=== PATIENT | female | born 1985 | race Caucasian/White ===

== ENCOUNTER → 2017-10-29 | Outpatient (REF) | payer BC ==
[2017-10-31 14:10] LABS: HPV HYBRID CAPTURE II Negative (Negative)
== END ==
LOC: M LAB REF 13:41
DX: Z12.4 Encounter for screening for malignant neoplasm of cervix (principal)

== ENCOUNTER → 2018-10-19 | Outpatient (REF) | payer BC ==
[2018-10-19 14:19] LABS: PERCENT SATURATION 19.8 % (13.2-45.0)
== END ==
LOC: M LAB REF 12:42
PROVIDERS: ATTEND Internal Medicine
DX: D64.9 Anemia, unspecified (principal)

== ENCOUNTER → 2020-04-03 | Outpatient (CLI) | payer BC ==
--- NOTE | 2020-04-23 07:05 | SLEEPCENT ---
DATE: 04/03/2020 ORDERED BY: Dr. Nette Bernal Nocturnal polysomnography was performed for evaluation of sleep physiology in this patient with a history of excessive somnolence, snoring, and nonrestorative sleep. There was 7 hours and 59 minutes of data reviewed. There was 429 minutes of sleep identified. Sleep latency was normal at 8 minutes. REM sleep was delayed at 232 minutes. Sleep architecture did show poor progression. There was only one REM cycle. Overall sleep efficiency was good at 90.3%. REM time was diminished. The electrocardiogram showed a sinus rhythm throughout with an average heart rate of 72 beats per minute. Rate ranged 60-90. EEG showed reasonably normal waveforms for wake and sleep stages. No focal events were identified. There were 39 respiratory events identified of 10 seconds in duration or greater for an apnea-hypopnea index of 5.5. The events were obstructive, only two mixed apneas being identified. The events were not exclusive to sleep stage. They were, however, only seen in the supine posture. Snoring was noted as well. Respiratory related arousals when arousals from snoring were included occurred two times per hour. Oxygen saturations remained 90%+ with only one desaturation below 90%. There was some activity in the limb leads but no trains of events. IMPRESSION: Mild positional obstructive sleep apnea syndrome (G47.33). Apnea-hypopnea index is 5.5. RECOMMENDATION: Sleep position retraining for avoidance of the supine posture may be sufficient to address the patient's problems. If symptoms persist, referral back to the sleep disorder center for pressure therapy could be considered. [facility]
== END ==
LOC: M SLEEP 20:00
PROVIDERS: ATTEND Nurse Practitioner Family
DX: G47.33 Obstructive sleep apnea (adult) (pediatric) (principal)

== ENCOUNTER → 2020-05-08 | Outpatient (CLI) | payer BC ==
--- NOTE | 2020-05-13 19:22 | SLEEPCENT ---
DATE: 05/08/2020 ORDERED BY: Dr. Nette Galvan Nocturnal polysomnography was performed for the titration of pressure therapy in this patient with obstructive sleep apnea syndrome, apnea-hypopnea index 5.5. For testing, a ResMed AirFit F20 full-face mask of large size was used. There was 4 cm of water pressure applied to the circuit, and the lights were extinguished. There was 8 hours and 7 minutes of data reviewed. There was 313.5 minutes of sleep identified. Sleep latency was prolonged at 55 minutes. REM latency was prolonged at 186 minutes. Sleep architecture improved significantly on optimal pressure therapy. There were three REM cycles noted. Overall sleep efficiency was 65%. The electrocardiogram showed a sinus rhythm with an average heart rate of 70 beats per minute . EEG showed reasonably normal waveforms for wake and sleep. Respiratory events were fully palliated with CPAP at a pressure of +6, and remaining measures of sleep physiology were normal. IMPRESSION: Obstructive sleep apnea syndrome (G47.33). RECOMMENDATION: Nightly use of pressure therapy, 6 cm of water. [facility]
== END ==
LOC: M SLEEP 20:00
PROVIDERS: ATTEND Nurse Practitioner Family
DX: G47.33 Obstructive sleep apnea (adult) (pediatric) (principal)